=== PATIENT | female | born 1990 | race Caucasian/White ===

== ENCOUNTER 2017-04-21 11:07 | Emergency (ER) | payer OTHER ==
[~2017-04-21] VITALS: Ht 167.6 cm; Wt 106.0 kg
[2017-04-21] MEDS ORDERED: CEFTRIAXONE SODIUM 1 G/VIAL IM ONE (15:15)
[2017-04-21] MEDS ORDERED: LIDOCAINE HCL 1% 20ML VIAL (Pyxis) INJ MC ONE (15:15)
[2017-04-21] MEDS ORDERED: IBUPROFEN 600MG TABLET PO ONE (15:15)
[2017-04-21 16:01] VITALS: BP 134/82
== END 2017-04-21 16:03 | disposition home or self-care (01) ==
LOC: ER 13:47
DX: L03.116 Cellulitis of left lower limb (principal)
CPT/HCPCS: 81025; 96372; 99283; J0696; J3490